=== PATIENT | male | born 1960 | race Caucasian/White ===

== ENCOUNTER 2022-02-06 11:00 | Outpatient (RCR) | payer OTHER, SELFPAY ==
[2022-01-15 10:06] VITALS: BP 121/69; PULSE 70
== END 2022-02-06 11:55 | disposition home or self-care (01) ==
LOC: HO.PT 11:00
PROVIDERS: PCP Student in an Organized Health Care Education/Training Program; Visit Provider Student in an Organized Health Care Education/Training Program
DX: M26.81 Anterior soft tissue impingement (principal)
CPT/HCPCS: 97110; 97161; 97530

== ENCOUNTER 2023-11-08 11:02 | Outpatient (REF) | payer OTHER, SELFPAY ==
[2023-11-08 15:25] LABS: Alanine Aminotransferase 71 U/L (0-40); Albumin Level 4.3 g/dL (3.5-5.0); Alkaline Phosphatase 65 U/L (39-117); Anion Gap 13 (12-20); Aspartate Amino Transferase 27 U/L (5-37); Bilirubin Direct 0.2 mg/dL (0.0-0.5); Bilirubin Total 0.5 mg/dL (0.0-1.0); Blood Urea Nitrogen 19 mg/dL (9-16); Calcium 9.8 mg/dL (8.4-10.2); Carbon Dioxide 26 mmol/L (22-29); Chloride 104 mmol/L (96-108); Cholesterol 137 mg/dL (<200); Estimated Glomerular Filt Rate > 60; Glucose Random 108 mg/dL (60-115); HDL Cholesterol 25 mg/dL (>40); LDL Cholesterol Calculated 78 mg/dL (<100); Potassium 4.1 mmol/L (3.3-5.1); Sodium 139 mmol/L (135-145); Total Protein 7.6 g/dL (6.5-8.0); Triglycerides 173 mg/dL (<150)
[2023-11-09 12:49] LABS: ~HepC Num1 0.12 S/CO (0.00-0.79); ~Hepatitis C Antibody Nonreactive (Nonreactive)
[2023-11-11 17:58] LABS: HIV RNA PCR Qn Copies Not Detected Copies/mL; HIV RNA PCR Qn Log Copies Not Detected Log cps/mL
== END 2023-11-08 11:03 | disposition home or self-care (01) ==
LOC: HO.CHCLDS 11:02
PROVIDERS: Visit Provider Student in an Organized Health Care Education/Training Program
DX: Z00.00 Encounter for general adult medical examination without abnormal findings (principal); E78.00 Pure hypercholesterolemia, unspecified; I10 Essential (primary) hypertension; E11.9 Type 2 diabetes mellitus without complications
CPT/HCPCS: 36415; 80048; 80061; 80076; 86803; 87536; 87900

== ENCOUNTER 2024-06-22 15:46 | Outpatient (REF) | payer OTHER, SELFPAY ==
[2024-06-22 18:45] LABS: Influenza A PCR NEGATIVE (Negative); Influenza B PCR NEGATIVE (Negative); Resp Syncy Virus RNA Qual PCR NEGATIVE (Negative); SARS COV2 PCR INHOUSE NEGATIVE (Negative)
== END 2024-06-22 15:47 | disposition home or self-care (01) ==
LOC: HO.CHCLNP 15:46
PROVIDERS: Visit Provider Family Medicine
DX: J06.9 Acute upper respiratory infection, unspecified (principal)
CPT/HCPCS: 0241U

== ENCOUNTER 2024-12-07 10:32 | Outpatient (REF) | payer OTHER, SELFPAY ==
--- OUTSIDE RECORDS SUMMARY | 2024-12-07 11:46 | XMS_ITS | Encounter Summary ---
Author Organization [employer] Address [address] [facility] [address] [place] [address] Care Team Providers Care Sterile Supply Technician Name Role Phone Camila Funez MD Primary Care Provider [phone] Encounter Details Date Type Department Care Team (Latest Contact Info) Description 12/07/2024 Travel Social History Tobacco Use Types Packs/Day Years Used Date Smoking Tobacco: Never Passive Smoke Exposure: Never Smokeless Tobacco: Never Alcohol Use Standard Drinks/Week Comments Never 0 (1 standard drink = 0.6 oz pur e alcohol) Depression Answer Date Recorded Patient Health Questionnaire-9 Score 4 12/07/2024 Patient Health Questionnaire-9 Score 4 12/07/2024 Last PHQ-9: Questionnaire Data Not on file 0 12/07/2024 Housing Stability Answer Date Recorded What is your housing situation today? I have preet dominique 12/07/[address] you li ve. Do you have problems with any of the following? None of the above 12/07/2024 Food Insecurity Answer Date Recorded Within the past 12 months, y ou worried that your food would run out before you got money to buy more: Never True 12/07/2024 Within the past 12 months,th e food you bought just didn't last and you didn't have enough money to get more: Never True Transportation Answer Date Recorded In the past 12 months, has l ack of transportation kept you from medical appts, meetings, work or from getting things needed for daily living? No 12/07/2024 Utilities Answer Date Recorded In the past 12 months, has t he electric, gas, oil or water company threatened to shut off services in your home? No 12/07/2024 Depression Answer Date Recorded Patient Health Questionnaire-2 Score 2 12/07/2024 Internet Access Answer Date Recorded Internet Access Q1 No 12/07/2024 Internet Access Q2 I do not want or need it 11/19 Sex and Gender Information Value Date Recorded Sex Assigned at Male 08/17/2022 10:18 AM EDT Legal Sex Male 10:18 AM EDT Gender Identity Male 08/17/2022 10:18 AM EDT Sexual Orientation Don't know 08/17/2022 10 :18 AM EDT documented as of this encounter Plan of Treatment Not on file documented as of this encounter Visit Diagnoses Not on filedocumented in this encounter Additional Health Concerns Assessment Noted Time PHQ-9 Depression Total Score: 4 12/07/19 25 10:24 AM EST documented as of this encounter Care Teams Sterile Supply Technician Relationship Specialty Start Date End Date Camila Funez MD [address] [place] [id number] PCP - General Family Medicine 09/30/12 documented as of this encounter
--- OUTSIDE RECORDS SUMMARY | 2024-12-07 11:46 | XMS_ITS | Clinical Summary ---
Author Organization [employer] Address 75 [facility] 7[address] [place] [address] Care Team Providers Care Dispensing Operator Name Role Phone Camila Funez MD Primary Care Provider [phone] Allergies No known active allergies Medications fluticasone (Flonase) 50 MCG/ACT nasal sprayIndication s:Acute cough Administer 1 spray into each nostril if needed in the morning and at bedtime for rhinitis. Shake gently. Before first use, prime pump. After use, clean tip and replace cap. 16 g 09/29/20 22 Active traZODone (Desyrel) 100 MG tablet Take 100 mg by mouth at bedtime. 01/26/20 23 Active sertraline (Zoloft) 100 MG tablet Take 100 mg by mouth in the morning. 12/29/19 23 Active cloNIDine (Catapres) 0.2 MG tablet Take 0.2 mg by mouth if needed at bedtime. 12/29/19 23 Active ARIPiprazole (Abilify) 2 MG tablet Take 2 mg by mouth in the morning. 12/29/19 23 Active metFORMIN (Glucophage) 500 MG tablet TAKE 1 TABLET BY MOUTH EVERY MORNING 30 tablet 02/21/20 24 Active TRUEplus Lancets 33G miscIndications :Type 2 diabetes mellitus without complication, without long-term current use of insulin (CMS/HCC) USE DIRECTED TO TEST BLOOD SUGAR TWICE DAILY 100 each 05/05/20 24 Active FREESTYLE LITE test stripIndication s:Type 2 diabetes mellitus without complication, without long-term current use of insulin (CMS/HCC) USE DIRECTED TO TEST BLOOD SUGAR TWICE DAILY 100 strip 05/05/20 24 Active simvastatin (Zocor) 20 MG tablet TAKE 1 TABLET BY MOUTH AT BEDTIME 90 tablet 1 06/15/20 24 Active gemfibrozil (Lopid) 600 MG tabletIndicatio ns:Hypercholest eremia TAKE 1 TABLET BY MOUTH EVERY EVENING 30 tablet 5 09/18/20 24 Active lisinopril 10 MG tabletIndicatio ns:Hypertension , unspecified type TAKE 1 TABLET BY MOUTH EVERY MORNING 30 tablet 5 11/17/19 25 Active lisinopril 10 MG tabletIndicatio ns:Hypertension , unspecified type TAKE 1 TABLET BY MOUTH EVERY MORNING 30 tablet 5 05/16/20 24 025 Discontinued Active Problems Problem Noted Date Diagnosed Date Upper respiratory tract infection 06/22/2024 Assessment & Plan (06/22/2024 4:51 PM EDT): Negative for Covid, Flu, and RSV. Ordering CXR for further evaluation of Sx. Pneumonia of left lower lobe due to infectious o rganism 06/22/2024 Assessment & Plan (06/22/2024 4:53 PM EDT): Left lung inflammation, ordering CXR for further evaluation. Prescribing Augmentin, Zithromax, and Robitussin for Sx. 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 11/08/2023 Encounters Date Type Department Care Team Description 12/07/2024 10:15 AM EST Office Visit [facility] [address] [place] [address] Camila Funez MD Type 2 diabetes mellitus without complication, without long-term current use of insulin (CMS/HCC) (Primary Dx); Pure hypercholesterolemia; Essential hypertension; Encounter for annual wellness visit; Screening for colon cancer; Atypical nevi 12/07/2024 Travel 11/23/2024 Patient Outreach [facility] [address] [place] [address] Camila Funez MD Pre-visit Planning ((Unable to reach for PVP screening, LVM)) 11/15/2024 Refill [facility] [address] [place] [address] Camila Funez MD Hypertension, unspecified type 10/25/2024 3:00 PM EST Office Visit [facility] [address] [place], [place] [id number] Naman, Magaly, OD Diabetes type 2, no ocular involvement (CMS/HCC) (Primary Dx); Suspicious optic nerve cupping of both eyes; Pseudophakia of both eyes; Presbyopia; Dry eyes, bilateral 10/25/2024 Travel 09/16/2024 Refill [facility] [address] [place] [address] Camila Funez MD Hypercholesteremia from Last 3 Months Immunizations Name Administration Dates Next Due Influenza Injectable Quadriv alant Preservative Free IIV4 MDCK 08/26/2022,09/04/2021 Influenza injectable quadriv alent IIV4 with preservative 07/29/2018,08/25/2017,09/05/2015 Influenza injectable quadriv alent preservative free 08/05/2023,07/21/2019 Influenza, IIV3, injectable 09/20/2014 Influenza, Split (incl. altagracia fied surface antigen) 07/06/2013,07/11/2012 Pfizer Covid-19 Vaccine 12+ 08/05/2023,0 01/09/2022,05/21/2021,2020 Pfizer Covid-19 Vaccine 12+ Bivalent 09/23/2022 Pfizer Covid-19 Vaccine 12+ etra-sucrose ([facility]) 01/09/2022 Tdap 06/02/2016 Zoster, Recombinant 09/04/2021,07/02/2021 Social History Tobacco Use Types Packs/Day Years Used Date Smoking Tobacco: Never Passive Smoke Exposure: Never Smokeless Tobacco: Never Tobacco Cessation:Counseling Given: Not Answered Alcohol Use Standard Drinks/Week Comments Never 0 [...] Don't know 08/17/2022 10 :18 AM EDT Last Filed Vital Signs Vital Sign Reading Time Taken Comments Blood Pressure 155/90 12/07/2024 10:11 AM EST Pulse 82 12/07/2024 10:11 AM EST Temperature 36.6 ??C (97.9 ??F) 12/07/2024 1 0:11 AM EST Respiratory Rate 20 12/07/2024 10:1 1 AM EST Oxygen Saturation 98% 06/22/2024 2:10 PM EDT Inhaled Oxygen Concentration - - Weight 86.1 kg (189 lb 14.4 oz) 025 10:11 AM EST Height 167.6 cm (5' 6 ) 12/07/2024 10:1 1 AM EST Body Mass Index 30.65 12/07/2024 10:11 AM EST Plan of Treatment Health Maintenance Due Date Last Done Comments CT Colonography 1960 Colonoscopy 1960 Colorectal Cancer Screening 1960 FIT DNA/Cologuard 1960 FIT 1960 FOBT 1960 HIV Screening 1960 Sigmoidoscopy 1960 Alcohol/Substance Use Screening 1972 Diabetes: Urine Protein Screening 1979 Pneumococcal Vaccine: 50+ Years (1 of 2 - PCV) 1979 RSV Patients and Patients Aged 60 years or older (1 - Risk 60-74 years 1-dose series) 2020 COVID-19 Vaccine ( season) 2024 08/05/2023, 09/23/2022, 01/09/2022, Additional history exists Influenza Vaccine (#1) 2024 , 08/26/2022, 09/04/2021, Additional history exists Lipid Panel 11/08/2024 11/08/2023, 03/19, 07/29/2021 Diabetes: Hemoglobin A1C 06/06/2025 025, 11/08/2023, 04/10/2022 Tobacco Screening 11/07/2025 11/07/2024 Depression Screening 12/07/2025 12/07/2024, 12/07/19 Diabetes: Foot Exam 12/07/2025 12/07/2024, 12/07/2024, 12/07/2024, Additional history exists SDOH Screening 12/07/2025 12/07/2024 DTaP/Tdap/Td Vaccines (2 - Td or Tdap) 06/02/2026 06/02/2016 Eye Exam 10/25/2026 10/25/2024, 05/2025, 10/25/2024, Additional history exists Zoster Vaccines Completed 09/04/2021, 07/02/2021 Hepatitis C Screening Completed 11/08/2023 HIB Vaccines Aged Out No longer eligi ble based on patient's age to complete this topic HPV Vaccines Aged Out No longer eligi ble based on patient's age to complete this topic Hepatitis A Vaccines Aged Out No long er eligible based on patient's age to complete this topic Hepatitis B Vaccines Aged Out No long er eligible based on patient's age to complete this topic IPV Vaccines Aged Out No longer eligi ble based on patient's age to complete this topic Meningococcal Vaccine Aged Out No maddison juan jose eligible based on patient's age to complete this topic RSV under 20 months Aged Out No longe r eligible based on patient's age to complete this topic Rotavirus Vaccines Aged Out No longer eligible based on patient's age to complete this topic Procedures Procedure Name Priority Date/Time Associated Diagnosis Comments POCT GLYCATED HEMOGLOBIN, TOTAL Routine 12/07/2024 10:23 AM EST Type 2 diabetes mellitus without complication, without long-term current use of insulin (CMS/HCC) POCT GLUCOSE Routine 12/07/2024 10:14 AM EST Type 2 diabetes mellitus without complication, without long-term current use of insulin (CMS/HCC) OCT, OPTIC NERVE - OU - BOTH EYES Routine 10/25/2024 3:00 PM EST Suspicious optic nerve cupping of both eyes HEPATITIS C AB W/REFL TO HCV RNA, QN, PCR Routine 11/08/2023 11:15 AM EST PE (physical exam), annual LIPID PANEL, STANDARD Routine 11/08/2023 11:15 AM EST Pure hypercholesterolemia from Last 3 Months or Most Recently Relevant to Health Maintenance Results * (ABNORMAL) POCT HGB A1C (12/07/2024 10:23 AM EST) Hemoglobin A1C 6.5(A) 4.0 - 6.0 % QC Media Lot # [id number] Lot# Expiration Date [id number] Blood 12/07/2024 10:2 3 AM EST Camila Funez MD POINT OF CARE TEST ENTER/EDIT OR DERABLES Final Result * POCT Glucose (12/07/2024 10:14 AM EST) Glucose Blood, POC 128 60 - 200 mg/dL QC Media Lot # [id number] Lot# Expiration Date Blood Capillary blood specimen / Unknown 12/07/2024 10:14 AM EST Result [facility] Camila Funez MD POINT OF CARE TEST ENTER/EDIT OR DERABLES Final Result * OCT, Optic Nerve - OU - Both Eyes (10/25/2024 3:00 PM EST) Narrative Magaly Florence, OD - 11/08/2024 2:32 PM EST Right Eye Images reviewed. To assess optic nerve function and for use in future follow-up. Reliability: good and adequate. Left Eye Images reviewed. To assess optic nerve function and for use in future follow-up. Reliability: good and adequate. Notes OCT OPTIC NERVE INTERPRETATION Optical Coherence Tomography Interpretation Report Test Details: Measurements: OD ??OS C/D Horizontal 0.68 ??0.65 C/D Vertical 0.62 ??0.61 Disc area 2.02 mm 2 ??2.33 mm 2 RNFL Average 99 microns ??97 microns ?? Test findings: OD: Normal RNFL thickness 360 degrees OS: Borderline RNFL thinning of nasal quadrant, normal RNFL thickness in all other quadrants Impression and Plan: Moderate optic nerve cupping in both eyes. No suspicion for glaucoma at this time. Will monitor at the patient's next exam. Result [facility] Magaly Florence OD OPHTH TOMOGRAPHY Final Result * Hepatitis C Antibody with Reflex to HCV, RNA, Quantitative, Real-Time PCR (11/08/2023 11:15 AM EST) Hepatitis C Antibody Nonreactive Nonreactive [facility] Comment:Antibodies to HCV no t detected; does not exclude early acuteHCV infection. Blood Venous blood specimen / Unknown 11/08/2023 11:15 AM EST 11/08/2023 2:11 PM EST Result [facility] Camila Funez MD LAB BLOOD ORDERABLES Final Resul t [facility] [address] [place] [address] [phone] * (ABNORMAL) Lipid Panel, Standard (11/08/2023 11:15 AM EST) Triglycerides 173(H) <150 mg/dL [facility] Comment:Desirable Triglyceri de: less than 150 mg/dLBorderline High Triglyceride 150-199 mg/dLHigh Triglyceride: 200-499 mg/dLVery High Triglyceride: greater than or equal to 5OO mg/dL Cholesterol 137 <200 mg/dL [facility] Comment:Desirable Cholestero l: less than 200 mg/dLBorderline High Cholesterol: 200-239 mg/dLHigh Cholesterol: greater than 239 mg/dL LDL Cholesterol Calculated 78 <100 mg/dL [facility] Comment:Desirable LDL: less than 100 mg/dLNear Optimal/Above Optimal LDL: 110- 129 mg/dLBorderline High LDL: 130-159 mg/dLHigh LDL: 160-189 mg/dLVery High LDL: greater than or equal to 190 mg/dL HDL Cholesterol 25(L) >40 mg/dL [facility] Comment:Desirable HDL: great er than 40 mg/dL Note: This HDL assay may give artificially low results in patients with liver disease. Blood Venous blood specimen / Unknown 11/08/2023 11:15 AM EST 11/08/2023 2:26 PM EST us Camila Funez MD LAB BLOOD ORDERABLES Final Resul t [facility] [address] [place] [address] [phone] from Last 3 Months or Most Recently Relevant to Health Maintenance Insurance [facility] Care Teams Dispensing Operator Relationship Specialty Start Date End Date Camila Funez MD [address] [place] [address] [place] [id number] PCP - General Family Medicine 09/30/12
--- OUTSIDE RECORDS SUMMARY | 2024-12-07 11:46 | XMS_ITS | Encounter Summary ---
Author Organization [employer] Address [address] [facility] [address] [place] [address] Care Team Providers Care Pediatric Immunologist Name Role Phone Camila Funez MD Primary Care Provider [phone] Reason for Visit * Reason Comments Pre-visit Planning (Unable to reach for PVP screening, LVM) Encounter Details Date Type Department Care Team ([facility] Contact Info) Description 11/23/2024 Patient Outreach [facility] [address] [place] [address] Camila Funez MD [address] [place] [address] Pre-visit Planning ((Unable to reach for PVP screening, LVM)) Social History Tobacco Use Types Packs/Day Years Used Date Smoking Tobacco: Never Passive Smoke Exposure: Never Smokeless Tobacco: Never Alcohol Use Standard Drinks/Week Comments Never 0 (1 standard drink = 0.6 oz pur e alcohol) Depression Answer Date Recorded Patient Health Questionnaire-9 Score 0 11/08/2023 Patient Health Questionnaire-9 Score 0 11/08/2023 Last PHQ-9: Questionnaire Data Not on file 0 11/08/2023 Housing Stability Answer Date Recorded What is your housing situation today? I have preet dominique 10/28/[address] you li ve. Do you have problems with any of the following? None of the above 10/28/2023 Food Insecurity Answer Date Recorded Within the past 12 months, y ou worried that your food would run out before you got money to buy more: Never True 10/28/2023 Within the past 12 months,th e food you bought just didn't last and you didn't have enough money to get more: Never True 08/2024 Transportation Answer Date Recorded In the past 12 months, has l ack of transportation kept you from medical appts, meetings, work or from getting things needed for daily living? No 10/28/2023 Utilities Answer Date Recorded In the past 12 months, has t he electric, gas, oil or water company threatened to shut off services in your home? No 10/28/2023 Depression Answer Date Recorded Patient Health Questionnaire-2 Score 0 11/08/2023 Sex and Gender Information Value Date Recorded Sex Assigned at Male 08/17/2022 10:18 AM EDT Legal Sex Male 10:18 AM EDT Gender Identity Male 08/17/2022 10:18 AM EDT Sexual Orientation Don't know 08/17/2022 10 :18 AM EDT documented as of this encounter Progress Notes * Ashley Hall - 11/23/2024 10:15 AM EST CC Ashley. Placed outbound call to patient to complete pre-visit planning. No answer at this time. Patient name and were not confirmed. CC left voicemail requesting return call. Direct contact information provided. documented in this encounter Plan of Treatment Not on file documented as of this encounter Visit Diagnoses Not on filedocumented in this encounter Additional Health Concerns Assessment Noted Time PHQ-9 Depression Total Score: 0 11/08/19 24 10:02 AM EST documented as of this encounter Care Teams Pediatric Immunologist Relationship Specialty Start Date End Date Camila Funez MD [address] [place] [id number] PCP - General Family Medicine 09/30/12 documented as of this encounter
--- OUTSIDE RECORDS SUMMARY | 2024-12-07 11:46 | XMS_ITS | Encounter Summary ---
Author Organization [employer] Address [address] [facility] [address] [place] [address] Care Team Providers Care Enterprise Integration Developer Name Role Phone Camila Funez MD Primary Care Provider [phone] Reason for Visit * Reason Comments Diabetic Eye Exam Encounter Details Date Type Department Care Team (Late st Contact Info) Description 10/25/2024 3:00 PM EST Office Visit [facility] [address] [place] [address] Naman, Magaly, OD [address] [place] [address] Diabetes type 2, no ocular involvement (CMS/HCC) (Primary Dx); Suspicious optic nerve cupping of both eyes; Pseudophakia of both eyes; Presbyopia; Dry eyes, bilateral Social History Tobacco Use Types Packs/Day Years [...] as of this encounter Progress Notes * Magaly Florence, OD - 10/25/2024 3:00 PM EST Eye Care Progress Note Patient ID: Timothy Echavarria is a 64 y.o. male. Chief Complaint Diabetic Eye Exam HPI Here with [facility] for a diabetic eye exam. He has Type II NIDDM. His last HbA1C was 6.0% on 11/08/2023. Today the patient complains of itching and tearing in both eyes when it is cold and windy outside. This has been occurring for 2-3 months. He is not self treating his symptoms. He denies any other vision or ocular complaints. Last eye exam 02/19/2023 Last edited by Magaly Florence, OD on 11/13/2024 9:49 AM. Current Outpatient Medications Medication Sig Dispense Refill ARIPiprazole (Abilify) 2 MG tablet Take 2 mg by mouth in the morning. cloNIDine (Catapres) 0.2 MG tablet Take 0.2 mg by mouth if needed at bedtime. fluticasone (Flonase) 50 MCG/ACT nasal spray Administer 1 spray into each nostril if needed in the morning and at bedtime for rhinitis. Shake gently. Before first use, prime pump. After use, clean tip and replace cap. 16 g 0 FREESTYLE LITE test strip USE DIRECTED TO TEST BLOOD SUGAR TWICE DAILY 100 strip 5 gemfibrozil (Lopid) 600 MG tablet TAKE 1 TABLET BY MOUTH EVERY EVENING 30 tablet 5 lisinopril 10 MG tablet TAKE 1 TABLET BY MOUTH EVERY MORNING 30 tablet 5 metFORMIN (Glucophage) 500 MG tablet TAKE 1 TABLET BY MOUTH EVERY MORNING 30 tablet 11 sertraline (Zoloft) 100 MG tablet Take 100 mg by mouth in the morning. simvastatin (Zocor) 20 MG tablet TAKE 1 TABLET BY MOUTH AT BEDTIME 90 tablet 1 traZODone (Desyrel) 100 MG tablet Take 100 mg by mouth at bedtime. TRUEplus Lancets 33G [facility] USE DIRECTED TO TEST BLOOD SUGAR TWICE DAILY 100 each 5 No current facility-administered medications for this visit. Past Medical History: Diagnosis Date COVID-19 06/2022 Developmental delay Hypertension Hypothyroidism Nodular lymphoma (CMS/HCC) 2010 Pure hypercholesterolemia Type 2 diabetes mellitus ([facility]/HCC) History reviewed. No pertinent surgical history. No family history on file. Social History Socioeconomic History Marital status: Single Spouse name: Not on file Number of children: Not on file Years of education: Not on file Highest education level: Not on file Occupational History Not on file Tobacco Use Smoking status: Never Passive exposure: Never Smokeless tobacco: Never Vaping Use Vaping status: Never Used Substance and Sexual Activity Alcohol use: Never Drug use: Never Sexual activity: Not on file Other Topics Concern Not on file Social History Narrative Not on file Social Drivers of Health Food Insecurity: Low Risk (10/28/2023) Food Insecurity Within the past 12 months, you worried that your food would run out before you got money to buy more:: Never True Within the past 12 months,the food you bought just didn't last and you didn't have enough money to get more: : Never True Transportation Needs: Low Risk (10/28/2023) Transportation In the past 12 months, has lack of transportation kept you from medical appts, meetings, work or from getting things needed for daily living? : No Intimate Partner Violence: Not on file Housing Stability: Low Risk (10/28/2023) Housing Stability What is your housing situation today?: I have housing Think about the place you live. Do you have problems with any of the following? : None of the above No Known Allergies ROS Positive for: Eyes Negative for: Constitutional, Gastrointestinal, Neurological, Skin, Genitourinary, Musculoskeletal,HENT, Endocrine, Cardiovascular, Respiratory, Psychiatric, Allergic/Imm, Heme/Lymph Last edited by Gemma Meneses on 10/25/2024 3:03 PM. Base Eye Exam Visual Acuity (Snellen - Linear) Right Left Dist sc 20/30 20/25 VA taken with tumbling E Tonometry ([facility] , 3:08 PM) Right Left Pressure 17 16 Pupils Pupils APD Right PERRL None Left PERRL None Visual Iqbal (Counting fingers) Left Right Full Full Could appreciate finger movement in the periphery Extraocular Movement Right Left Full Full Neuro/Psych Oriented x3: Yes Mood/Affect: Normal Dilation Both eyes: 1% Tropicamide @ 3:38 PM Slit Lamp and Fundus Exam External Exam Right Left External Normal Normal Slit Lamp Exam Right Left Lids/Lashes Normal Normal Conjunctiva/Sclera White and quiet White and quiet Cornea TBUT instant TBUT instant Anterior Chamber Deep and quiet Deep and quiet Iris Flat, no NVI Flat, no NVI Lens PCIOL PCIOL Fundus Exam Right Left Vitreous Clear Clear Disc [place] and Distinct, no NVD [place] and Distinct, no NVD C/D Ratio Vertical .50 .60 C/D Ratio Horizontal .50 .60 Macula Flat and Intact, no CSME Flat and Intact, no CSME Vessels Normal Normal Periphery No holes/breaks/tears 360 degrees, no NVE No holes/breaks/tears 360 degrees, no NVE Refraction Wearing Rx Sphere Cylinder Add Right [place] Sphere +2.50 Left [place] Sphere +2.50 Manifest Refraction (Retinoscopy) Sphere Cylinder [place] Dist VA Add Right -0.75 Sphere Left -0.25 Sphere Manifest Refraction #2 (Auto) Sphere Cylinder [place] Dist VA Add Right [place] -0.50 114 Left +0.50 -0.75 097 Manifest Refraction #3 (Subjective) Sphere Cylinder [place] Dist VA Add Right -0.50 Sphere 20/20 +2.50 Left +0.25 Sphere 20/20 +2.50 Comments: VA taken with tumbling E Final Rx Sphere Cylinder Right +2.00 Sphere Left +2.50 Sphere Type: Reading Expiration Date: 10/25/2025 Assessment/plan: Diagnoses and all orders for this visit: Diabetes type 2, no ocular involvement (CMS/[facility]) There is no diabetic retinopathy or macular edema present today in either eye. The patient was educated on the exam findings. The patient was educated to continue controlling blood glucose levels through diet, exercise and medication. The patient was educated on potential complications of diabetic retinopathy, including blindness, if left untreated. The patient was educated on the importance of an annual diabetic eye exam to monitor for diabetic retinopathy. A summary of today's dilated eye exam results will be communicated to the patient's PCP through the shared patient problem list in [facility].Will monitor in 1 year. 2. Suspicious optic nerve cupping of both eyes The patient has large optic nerve cupping in both eyes. There is low suspicion for glaucoma at thistime and no treatment is recommended. The patient was educated we will monitor his optic nerves regularly to monitor for any development of glaucoma. He was educated that glaucoma is a condition thatcan lead to permanent loss of vision. Will monitor at his next exam. - OCT, Optic Nerve - OU - Both Eyes 3. Dry Eyes Patient educated on dry eye syndrome. Dry eye syndrome is caused by a chronic lack of sufficient lubrication and moisture on the surface of the eye. Consequences of dry eyes range from subtle but constant eye irritation to significant inflammation and even scarring of the front surface of the eye. S ymptoms of dry eye syndrome include: a burning sensation, itching, an aching sensation, heavy feeling eyes, fatigued eyes, sore eyes, dryness sensation, redness, photophobia, and blurred vision. She was given a handout of OTC artificial tears to purchase and use 3 times per day in both eyes. Will monitor at her next exam. 4. Pseudophakia of both eyes Implants are centered and clear. Will monitor at his next exam. 5. Presbyopia Glasses prescription updated and given. Will monitor at the patient's next full eye exam. Magaly Florence, OD 11/13/2024, 10:09 AM Student Name: Gemma Roqueleslie I attest that I was physically present with the optometry student. I personally saw and evaluated the patient and performed my own history and examination. I have reviewed, verified, and revised the documented findings as necessary and agree with the content and plan as written. Stratigrapher Source: ___ None ___ Bilingual Staff ___ Qualified Staff Fabric Pattern Grader ___ Telephone Stratigrapher; ID# _X__ Stratigrapher brought by patient ([facility]) ___ In person rpg programmer analyst ___ Ipad Stratigrapher; ID#: Language Spoken During Exam: ___Spanish documented in this encounter Plan of Treatment Not on file documented as of this encounter Procedures Procedure Name Priority Date/Time Associated Diagnosis Comments OCT, OPTIC NERVE - OU - BOTH EYES Routine 10/25/2024 3:00 PM EST Suspicious optic nerve cupping of both eyes documented in this encounter Results * OCT, Optic Nerve - OU - Both Eyes (10/25/2024 3:00 PM EST) Chanda NamanMagaly lerma, OD - 11/08/2024 2:32 PM EST Right [...] Will monitor at the patient's next exam. 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
--- OUTSIDE RECORDS SUMMARY | 2024-12-07 11:46 | XMS_ITS | Encounter Summary ---
Author Organization [employer] Address [address] [facility] 7[address] [place] [address] Care Team Providers Care Security Systems Installer Name Role Phone Camila Funez MD Primary Care Provider [phone] Reason for Visit * Reason Comments Med Refill Encounter Details Date Type Department Care Team (Late st Contact Info) Description 11/15/2024 Refill [facility] [address] [place] [address] Camila Funez MD [address] [place], [place] [id number] Hypertension, unspecified type Social History Tobacco Use Types Packs/Day Years [...] documented as of this encounter Visit Diagnoses Diagnosis Hypertension, unspecified type documented in this encounter Additional Health Concerns Assessment Noted Time PHQ-9 Depression Total Score: 0 11/08/19 24 10:02 AM EST documented as of this encounter Care Teams Security Systems Installer Relationship Specialty Start Date End Date Camila Funez MD [address] [place] [id number] PCP - General Family Medicine 09/30/12 documented as of this encounter
--- OUTSIDE RECORDS SUMMARY | 2024-12-07 11:46 | XMS_ITS | Encounter Summary ---
Author Organization [employer] Address [address] [place] [address] [address] [place] [address] Care Team Providers Care Terminal Manager Name Role Phone Camila Funez MD Primary Care Provider [phone] Reason for Referral * Consultation (Routine) - Authorized Specialty Diagnoses / Procedures Referred By Estrella carlos Referred To Contact Dermatology Diagnoses Atypical nevi Camila Funez MD [address] [place] [address] Phone: tel: fax: Referral ID Status Reason Start Date Expiration Date Visits Requested Visits Authorized [id number] Authorized Specialty Services Required 12/07/2024 12/07/2025 1 1 * Consultation (Routine) - Authorized Specialty Diagnoses / Procedures Referred By Estrella carlos Referred To Contact Pharmacy Diagnoses Type 2 diabetes mellitus without complication, without long-term current use of insulin ([facility]) Essential hypertension Camila Funez MD [address] [place] [address] Phone: tel: fax: Referral ID Status Reason Start Date Expiration Date Visits Requested Visits Authorized [id number] Authorized Consult and Treat 12/07/2024 12/07/2025 6 6 Reason for Visit * Reason Comments Diabetes adult care Encounter Details Date Type Department Care Team ([facility] Contact Info) Description 12/07/2024 10:15 AM EST Office Visit [facility] [address], [place] [phone] Camila Funez MD [address] [place] [address] Type 2 diabetes mellitus without complication, without long-term current use of insulin (CMS/HCC) (Primary Dx); Pure hypercholesterolemia; Essential hypertension; Encounter for annual wellness visit; Screening for colon cancer; Atypical nevi Social History Tobacco Use Types Packs/Day Years [...] is your housing situation today? I have preetadrianne dominique 12/07/[address] you [...] AM EDT documented as of this encounter Last Filed Vital Signs Vital Sign Reading Time Taken Comments Blood Pressure 155/90 12/07/2024 10:11 AM EST Pulse 82 12/07/2024 10:11 AM EST Temperature 36.6 ??C (97.9 ??F) 12/07/2024 1 0:11 AM EST Respiratory Rate 20 12/07/2024 10:1 1 AM EST Oxygen Saturation - - Inhaled Oxygen Concentration - - Weight 86.1 kg (189 lb 14.4 oz) 025 10:11 AM EST Height 167.6 cm (5' 6 ) 12/07/2024 10:1 1 AM EST Body Mass Index 30.65 12/07/2024 10:11 AM EST documented in this encounter Progress Notes * Camila Funez MD - 12/07/2024 10:15 AM EST Subjective Patient ID: Timothy Echavarria is a 64 y.o. male who presents for Diabetes and adult care. Diabetes He presents for his follow-up diabetic visit. He has type 2 diabetes mellitus. His disease course has been stable. There are no hypoglycemic associated symptoms. Pertinent negatives for hypoglycemia include no headaches or sweats. There are no diabetic associated symptoms. Pertinent negatives for diabetes include no blurred vision and no chest pain. There are no diabetic complications. Hypertension This is a chronic problem. The current episode started more than 1 year ago. The problem has been gradually worsening since onset. The problem is uncontrolled. Pertinent negatives include no anxiety,blurred vision, chest pain, headaches, malaise/fatigue, neck pain, orthopnea, palpitations, peripheral edema, PND, shortness of breath or sweats. Risk factors for coronary artery disease include sedentary lifestyle and male gender. Past treatments include SUE inhibitors. The current treatment provides moderate improvement. Compliance problems include diet. Review of Systems Constitutional: Negative. Negative for malaise/fatigue. Eyes: Negative for blurred vision. Respiratory: Negative. Negative for shortness of breath. Cardiovascular: Negative. Negative for chest pain, palpitations, orthopnea and PND. Gastrointestinal: Negative. Genitourinary: Negative. Musculoskeletal: Negative for neck pain. Neurological: Negative for headaches. Objective Physical Exam Constitutional: General: He is not in acute distress. Appearance: Normal appearance. He is normal weight. HENT: Head: Normocephalic and atraumatic. Right Ear: Tympanic membrane normal. Left Ear: Tympanic membrane normal. Nose: Nose normal. Mouth/Throat: Mouth: Mucous membranes are moist. Comments: Has braces Eyes: Extraocular Movements: Extraocular movements intact. Pupils: Pupils are equal, round, and reactive to light. Cardiovascular: Rate and Rhythm: Normal rate and regular rhythm. Pulses: Dorsalis pedis pulses are 2+ on the right side and 2+ on the left side. Posterior tibial pulses are 2+ on the right side and 2+ on the left side. Heart sounds: Normal heart sounds. No murmur heard. Pulmonary: Effort: Pulmonary effort is normal. Breath sounds: Normal breath sounds. Abdominal: General: Abdomen is flat. Bowel sounds are normal. There is no distension. Palpations: Abdomen is soft. There is no mass. Tenderness: There is no abdominal tenderness. There is no guarding. Musculoskeletal: General: Normal range of motion. Cervical back: Normal range of motion. Right lower leg: No edema. Left lower leg: No edema. Right foot: Normal range of motion. No deformity, bunion, Charcot foot or prominent metatarsal heads. Left foot: Normal range of motion. No deformity, bunion, Charcot foot or prominent metatarsal heads. Feet: Right foot: Protective Sensation: 7 sites tested. 7 sites sensed. Skin integrity: Skin integrity normal. No ulcer, blister, skin breakdown, erythema, warmth, callus or dry skin. Toenail Condition: Right toenails are normal. Left foot: Protective Sensation: 7 sites tested. 7 sites sensed. Skin integrity: Skin integrity normal. No ulcer, blister, skin breakdown, erythema, warmth, callus or dry skin. Toenail Condition: Left toenails are normal. Skin: General: Skin is warm. Capillary Refill: Capillary refill takes less than 2 seconds. Findings: No rash. Neurological: Mental Status: He is alert and oriented to person, place, and time. Psychiatric: Mood and Affect: Mood normal. Behavior: Behavior normal. Assessment/Plan Diagnoses and all orders for this visit: Type 2 diabetes mellitus without complication, without long-term current use of insulin ([facility]) Comments: Well controlled Advised Low sugar and Low carb diet. Counseled regarding self-monitoring of blood glucose. Counseled re: potential co-morbidities including cardiovascular disease. Counseled re: potential co-morbidities include neuropathy and retinopathy. Counseled re: potential co-morbidities include nephropathy. Orders: - Basic Metabolic Panel; Future - Lipid Panel, Standard; Future - Hepatic Function Panel; Future - Albumin, Random Urine W/Creatinine; Future - Hemoglobin A1c; Future - POCT Glucose - POCT HGB A1C - Referral to Pharmacy CDTM Pure hypercholesterolemia Comments: Labs ordered today Advised to maintain a low-fat, low-cholesterol diet. Counseled regarding importance of weight loss. Orders: - Basic Metabolic Panel; Future - Lipid Panel, Standard; Future - Hepatic Function Panel; Future Essential hypertension Comments: Elevated Strongly advised low salt diet Maintain a low-sodium diet (less than 2 grams per day). Maintain a regular cardiovascular exercise program. Advised to maintain a low-fat, low-cholesterol diet. Counseled regarding importance of weight loss. Counseled re: potential co-morbidities including cardiovascular disease. Orders: - Basic Metabolic Panel; Future - Lipid Panel, Standard; Future - Hepatic Function Panel; Future - Referral to Pharmacy CDTM Encounter for annual wellness visit Screening for colon cancer - Cologuard?? colon cancer screening Atypical nevi Comments: Referred to Orders: - Referral to Dermatology; Future documented in this encounter Plan of Treatment Scheduled Orders Name Type Priority Associated Diagnoses Orde r Schedule Basic Metabolic Panel Lab Routine Type 2 diabetes mellitus without complication, without long-term current use of insulin ([facility]) Pure hypercholesterolemia Essential hypertension Expected: 12/07/2024 (Approximate), Expires: 12/07/2025 Lipid Panel, Standard Lab Routine Type 2 diabetes mellitus without complication, without long-term current use of insulin ([facility]/HCC) Pure hypercholesterolemia Essential hypertension Expected: 12/07/2024 (Approximate), Expires: 12/07/2025 Hepatic Function Panel Lab Routine Type 2 diabetes mellitus without complication, without long-term current use of insulin (CMS/HCC) Pure hypercholesterolemia Essential hypertension Expected: 12/07/2024 (Approximate), Expires: 12/07/2025 Albumin, Random Urine W/Creatinine Lab Routine Type 2 diabetes mellitus without complication, without long-term current use of insulin (CMS/HCC) Expected: 12/07/2024 (Approximate), Expires: 12/07/2025 Hemoglobin A1c Lab Routine Type 2 diabetes mellitus without complication, without long-term current use of insulin ([facility]/HCC) Expected: 12/07/2024 (Approximate), Expires: 12/07/2025 Cologuard?? colon cancer screening Lab Routine Screening for colon cancer Ordered: 12/07/2024 Scheduled Referrals Name Type Priority Associated Diagnoses Orde r Schedule Referral to Pharmacy CDTM Outpatient Referral Routine Type 2 diabetes mellitus without complication, without long-term current use of insulin ([facility]) Essential hypertension Ordered: 12/07/2024 Referral to Dermatology Outpatient Referral Routine Atypical nevi Expected: 12/07/2024 (Approximate), Expires: 12/07/2025 documented as of this encounter Procedures Procedure Name Priority Date/Time Associated Diagnosis Comments POCT GLYCATED HEMOGLOBIN, TOTAL Routine 12/07/2024 10:23 AM EST Type 2 diabetes mellitus without complication, without long-term current use of insulin ([facility]) POCT GLUCOSE Routine 12/07/2024 10:14 AM EST Type 2 diabetes mellitus without complication, without long-term current use of insulin ([facility]) documented in this encounter Results * (ABNORMAL) POCT HGB A1C (12/07/2024 10:23 AM EST) Pathologist [facility] Hemoglobin A1C 6.5(A) 4.0 - 6.0 % QC Media Lot # [id number] Lot# Expiration Date ,026 Blood 12/07/2024 10:2 3 AM EST us Camila Funez MD POINT OF CARE TEST ENTER/EDIT OR DERABLES Final Result * POCT Glucose (12/07/2024 10:14 AM EST) Glucose Blood, POC 128 60 - 200 mg/dL QC Media Lot # [id number] Lot# Expiration Date ,082,025 Blood Capillary blood specimen / Unknown 12/07/2024 10:14 AM EST us Camila Funez MD POINT OF CARE TEST ENTER/EDIT OR DERABLES Final Result documented in this encounter Visit Diagnoses Diagnosis Type 2 diabetes mellitus without complication, without long-term current use of insulin (CMS/[facility])- Primary Pure hypercholesterolemia Essential hypertension Unspecified essential hypertension Encounter for annual wellness visit Screening for colon cancer Special screening for malignant neoplasms, colon Atypical nevi Benign neoplasm of skin, site unspecified documented in this encounter Additional Health Concerns Assessment Noted Time PHQ-9 Depression Total Score: 4 12/07/19 25 10:24 AM EST documented as of this encounter Care Teams Terminal Manager Relationship Specialty Start Date End Date Camila Funez MD [address] [place] [address] PCP - General Family Medicine 09/30/12 documented as of this encounter
--- OUTSIDE RECORDS SUMMARY | 2024-12-07 11:46 | XMS_ITS | Encounter Summary ---
Author Organization [employer] Address [address] [place] [address] Care Team Providers Care Superintendent Greens Name Role Phone Camila Funez MD Primary Care Provider [phone] Encounter Details Date Type Department Care Team (Late st Contact Info) Description 01/05/2023 Abstract [facility] MEDICINE [address] [place] [address] Camila Funez MD [address] [place] [address] Social History Tobacco Use Types Packs/Day Years Used Date Smoking Tobacco: Never Passive Smoke Exposure: Never Smokeless Tobacco: Never Alcohol Use Standard Drinks/Week Comments Never 0 (1 standard drink = 0.6 oz pur e alcohol) Sex and Gender Information Value Date Recorded Sex Assigned at Male 08/17/2022 10:18 AM EDT Legal Sex Male 10:18 AM EDT Gender Identity Male 08/17/2022 10:18 AM EDT Sexual Orientation Don't know 08/17/2022 10 :18 AM EDT documented as of this encounter Plan of Treatment Not on file documented as of this encounter Visit Diagnoses Not on filedocumented in this encounter Care Teams Superintendent Greens Relationship Specialty Start Date End Date Camila Funez MD [address] [place] [address] PCP - General Family Medicine 09/30/12 documented as of this encounter
[2024-12-07 14:25] LABS: Estimated Average Glucose 131 mg/dL; Hemoglobin A1C 180.1459 umol/L; Hemoglobin A1c % 6.2 % (<6.0); Total Hemoglobin (HGBA1C) 4042.0726 umol/L
[2024-12-07 14:36] LABS: Alanine Aminotransferase 91 U/L (0-40); Albumin Level 4.3 g/dL (3.5-5.0); Alkaline Phosphatase 61 U/L (39-117); Anion Gap 11 (12-20); Aspartate Amino Transferase 51 U/L (5-37); Bilirubin Direct 0.2 mg/dL (0.0-0.5); Bilirubin Total 0.5 mg/dL (0.0-1.0); Blood Urea Nitrogen 13 mg/dL (9-16); Calcium 9.9 mg/dL (8.4-10.2); Carbon Dioxide 26 mmol/L (22-29); Chloride 105 mmol/L (96-108); Cholesterol 145 mg/dL (<200); Estimated Glomerular Filt Rate > 60; Glucose Random 118 mg/dL (60-115); HDL Cholesterol 30 mg/dL (>40); LDL Cholesterol Calculated 75 mg/dL (<100); Potassium 4.3 mmol/L (3.3-5.1); Sodium 138 mmol/L (135-145); Total Protein 7.7 g/dL (6.5-8.0); Triglycerides 202 mg/dL (<150)
== END 2024-12-07 10:33 | disposition home or self-care (01) ==
LOC: HO.CHCLDS 10:32
PROVIDERS: Visit Provider Student in an Organized Health Care Education/Training Program
DX: E11.9 Type 2 diabetes mellitus without complications (principal); E78.00 Pure hypercholesterolemia, unspecified; I10 Essential (primary) hypertension
CPT/HCPCS: 36415; 80048; 80061; 80076; 83036

== ENCOUNTER 2025-03-19 14:59 | Outpatient (REF) | payer OTHER, SELFPAY ==
[2025-03-19 17:58] LABS: Anion Gap 12 (12-20); Blood Urea Nitrogen 17 mg/dL (9-16); Calcium 9.4 mg/dL (8.4-10.2); Carbon Dioxide 26 mmol/L (22-29); Chloride 104 mmol/L (96-108); Estimated Glomerular Filt Rate > 60; Glucose Random 99 mg/dL (60-115); Potassium 3.6 mmol/L (3.3-5.1); Sodium 138 mmol/L (135-145)
== END 2025-03-19 15:00 | disposition home or self-care (01) ==
LOC: HO.CHCLDS 14:59
PROVIDERS: Visit Provider Student in an Organized Health Care Education/Training Program
DX: I10 Essential (primary) hypertension (principal)
CPT/HCPCS: 36415; 80048